=== PATIENT | female | born 1980 | race Two or more races ===

== ENCOUNTER 2018-06-29 17:14 | Emergency (ER) | payer MEDICAID, OTHER ==
[~2018-06-29] VITALS: Ht 170.2 cm; Wt 82.6 kg
[2018-06-29 19:14] LABS: Potassium 3.9 mmol/L (3.5-5.1)
[2018-06-29 19:16] LABS: Basophils # (auto) 0 uL; Basophils % (auto) 0.4 % (0.0-2.0); Eosinophils # (auto) 0.1 uL; Eosinophils % (auto) 0.9 % (0.0-7.0); Hematocrit 40.4 % (36.0-46.0); Hemoglobin 13.4 g/dL (12.2-16.2); Lymphocytes # (auto) 2.1 uL; Lymphocytes % (auto) 23.6 % (10.0-50.0); Mean Corpuscular Hemoglobin 32.1 pg (28.0-32.0); Mean Corpuscular Hgb Conc. 33.1 g/dL (32.0-36.0); Mean Corpuscular Volume 97.2 fL (80.0-100.0); Monocytes # (auto) 0.6 uL; Monocytes % (auto) 6.8 % (0.0-12.0); Neutrophils # (auto) 6.2 uL; Neutrophils % (auto) 68.3 % (37.0-80.0); Nucleated Red Blood Cells % 0.1 %; Platelet Count (auto) 291 10^3/uL (140-450); Red Blood Cells 4.16 10^6/uL (4.0-5.20)
[2018-06-29 19:17] LABS: Albumin 3.8 g/dL (3.4-5.0); Calcium 9.1 mg/dL (8.5-10.1)
[2018-06-29 19:20] LABS: BUN/Creatinine Ratio 12.7
[2018-06-29 19:23] LABS: Bilirubin, Total 0.1 mg/dL (0.2-1.0); Total Protein 8.3 g/dL (6.4-8.2)
[2018-06-29 21:45] VITALS: BP 136/79
== END 2018-06-29 22:24 | disposition home or self-care (01) ==
LOC: ER 17:29
DX: O20.0 Threatened abortion (principal); Z3A.01 Less than 8 weeks gestation of pregnancy
CPT/HCPCS: 36415; 76801; 76817; 80053; 84702; 85025

== ENCOUNTER 2018-12-18 10:46 | Observation (INO) | payer MEDICAID ==
[2018-12-18] MEDS ORDERED: PREN-96 PO (11:17)
[2018-12-18 11:37] LABS: Basophils # (auto) 0 uL; Basophils % (auto) 0.3 % (0.0-2.0); Eosinophils # (auto) 0.1 uL; Eosinophils % (auto) 0.5 % (0.0-7.0); Hematocrit 32.6 % (36.0-46.0); Hemoglobin 11.1 g/dL (12.2-16.2); Lymphocytes # (auto) 1.6 uL; Lymphocytes % (auto) 16.3 % (10.0-50.0); Mean Corpuscular Hemoglobin 33.4 pg (28.0-32.0); Mean Corpuscular Hgb Conc. 34.2 g/dL (32.0-36.0); Mean Corpuscular Volume 97.4 fL (80.0-100.0); Monocytes # (auto) 0.5 uL; Monocytes % (auto) 4.9 % (0.0-12.0); Neutrophils # (auto) 7.9 uL; Nucleated Red Blood Cells % 0.1 %; Platelet Count (auto) 292 10^3/uL (140-450); Red Blood Cells 3.34 10^6/uL (4.0-5.20); Red Cell Distribution Width 13.3 % (11.8-14.3); White Blood Cell 10.1 10^3/uL (4.4-10.8)
[2018-12-18 11:44] LABS: Urine Bacteria NONE SEEN /hpf (None Seen); Urine Blood Negative /uL (Negative); Urine Mucus FEW (None Seen); Urine Specific Gravity 1.014 (1.001-1.035); Urine WBC 59 /hpf (0 - 5)
[2018-12-18 11:54] LABS: Albumin 2.6 g/dL (3.4-5.0); BUN/Creatinine Ratio 8.7; Calcium 8.5 mg/dL (8.5-10.1); Potassium 3.7 mmol/L (3.5-5.1); Uric Acid 4.8 mg/dL (2.6-6.0)
[2018-12-18 11:56] LABS: INR < 0.93 (0.9-1.15); Partial Thromboplastin Time 27.5 sec (23.64-32.05)
[2018-12-18 11:57] LABS: Bilirubin, Total 0.2 mg/dL (0.2-1.0)
== END 2018-12-18 12:20 | disposition home or self-care (01) | DRG 566 ==
LOC: LDRP 10:46
PROVIDERS: ADMIT Specialist; ATTEND Specialist
DX: O26.893 Other specified pregnancy related conditions, third trimester (principal); O09.523 Supervision of elderly multigravida, third trimester; Z3A.31 31 weeks gestation of pregnancy
CPT/HCPCS: 36415; 59025; 80053; 81001; 81002; 84550; 85025; 85610; 85730; G0378

== ENCOUNTER 2018-12-20 12:55 | Observation (INO) | payer MEDICAID ==
[~2018-12-20 12:55] MED LIST: PREN-96 PO
[2018-12-20 14:12] LABS: Protein, Urine 8.8 mg/dL (0.0-11.9)
[2018-12-20 16:40] LABS: 24 Hr. Total Protein, Urine 158.4 mg/24 Hr (<149.1)
== END 2018-12-20 14:00 | disposition home or self-care (01) | DRG 566 ==
LOC: LDRP 12:55
PROVIDERS: ADMIT Obstetrics & Gynecology; ATTEND Obstetrics & Gynecology
DX: O13.3 Gestational [pregnancy-induced] hypertension without significant proteinuria, third trimester (principal); Z3A.31 31 weeks gestation of pregnancy
CPT/HCPCS: 59025; 81002; 84156; G0378

== ENCOUNTER 2018-12-24 10:30 | Observation (INO) | payer MEDICAID | END 2018-12-24 12:55 | disposition home or self-care (01) | DRG 563 | LOC: LDRP 10:30 | PROVIDERS: ADMIT Specialist; ATTEND Specialist | DX: O60.03 Preterm labor without delivery, third trimester (principal); O13.3 Gestational [pregnancy-induced] hypertension without significant proteinuria, third trimester; Z3A.31 31 weeks gestation of pregnancy | CPT/HCPCS: 59025; 76818; 81002; G0378 ==

== ENCOUNTER 2018-12-31 09:10 | Observation (INO) | payer MEDICAID | END 2018-12-31 10:44 | disposition home or self-care (01) | DRG 566 | LOC: LDRP 09:10 | PROVIDERS: ADMIT Obstetrics & Gynecology; ATTEND Obstetrics & Gynecology | DX: O41.93X0 Disorder of amniotic fluid and membranes, unspecified, third trimester, not applicable or unspecified (principal); Z3A.32 32 weeks gestation of pregnancy | CPT/HCPCS: 59025; 76818; 81002; G0378 ==

== ENCOUNTER 2019-01-04 18:58 | Observation (INO) | payer MEDICAID ==
[~2019-01-04] VITALS: Ht 170.2 cm; Wt 90.7 kg
[2019-01-04 20:30] LABS: Basophils # (auto) 0 uL; Basophils % (auto) 0.1 % (0.0-2.0); Eosinophils # (auto) 0.1 uL; Eosinophils % (auto) 1.1 % (0.0-7.0); Hematocrit 32.4 % (36.0-46.0); Hemoglobin 11.1 g/dL (12.2-16.2); Lymphocytes # (auto) 2.3 uL; Lymphocytes % (auto) 23.4 % (10.0-50.0); Mean Corpuscular Hemoglobin 33.5 pg (28.0-32.0); Mean Corpuscular Hgb Conc. 34.3 g/dL (32.0-36.0); Mean Corpuscular Volume 97.5 fL (80.0-100.0); Monocytes # (auto) 0.6 uL; Monocytes % (auto) 6.5 % (0.0-12.0); Neutrophils # (auto) 6.6 uL; Neutrophils % (auto) 68.9 % (37.0-80.0); Platelet Count (auto) 293 10^3/uL (140-450); Red Blood Cells 3.32 10^6/uL (4.0-5.20); Red Cell Distribution Width 13.8 % (11.8-14.3); White Blood Cell 9.6 10^3/uL (4.4-10.8)
[2019-01-04 20:34] LABS: Urine Bacteria FEW /hpf (None Seen); Urine Blood Negative /uL (Negative); Urine Mucus FEW (None Seen); Urine Specific Gravity 1.019 (1.001-1.035); Urine WBC 6 /hpf (0 - 5)
[2019-01-04 20:44] LABS: INR < 0.93 (0.9-1.15); Partial Thromboplastin Time 27.2 sec (23.64-32.05)
[2019-01-04 20:54] LABS: Albumin 2.6 g/dL (3.4-5.0); BUN/Creatinine Ratio 14.3; Bilirubin, Total 0.1 mg/dL (0.2-1.0); Calcium 8.2 mg/dL (8.5-10.1); Potassium 4.1 mmol/L (3.5-5.1); Total Protein 6.8 g/dL (6.4-8.2); Uric Acid 4.7 mg/dL (2.6-6.0)
== END 2019-01-04 21:12 | disposition home or self-care (01) | DRG 566 ==
LOC: LDRP 18:58
PROVIDERS: ADMIT Specialist; ATTEND Specialist
DX: O26.893 Other specified pregnancy related conditions, third trimester (principal); H57.89 Other specified disorders of eye and adnexa; Z3A.33 33 weeks gestation of pregnancy
CPT/HCPCS: 36415; 59025; 80053; 81001; 81002; 84550; 85025; 85610; 85730; G0378

== ENCOUNTER 2019-01-07 10:33 | Observation (INO) | payer MEDICAID | END 2019-01-07 12:05 | disposition home or self-care (01) | DRG 566 | LOC: LDRP 10:33 | PROVIDERS: ADMIT Specialist; ATTEND Specialist | DX: O13.3 Gestational [pregnancy-induced] hypertension without significant proteinuria, third trimester (principal); O09.513 Supervision of elderly primigravida, third trimester; Z3A.36 36 weeks gestation of pregnancy | CPT/HCPCS: 59025; 76818; 81002; G0378 ==

== ENCOUNTER 2019-01-30 10:39 | Observation (INO) | payer MEDICAID ==
[2019-01-30 13:03] LABS: Basophils # (auto) 0 uL; Basophils % (auto) 0.1 % (0.0-2.0); Eosinophils # (auto) 0 uL; Eosinophils % (auto) 0.4 % (0.0-7.0); Hematocrit 35.6 % (36.0-46.0); Hemoglobin 11.9 g/dL (12.2-16.2); Lymphocytes # (auto) 1.7 uL; Lymphocytes % (auto) 18.5 % (10.0-50.0); Mean Corpuscular Hemoglobin 32.5 pg (28.0-32.0); Mean Corpuscular Hgb Conc. 33.6 g/dL (32.0-36.0); Mean Corpuscular Volume 96.9 fL (80.0-100.0); Monocytes # (auto) 0.4 uL; Monocytes % (auto) 4.9 % (0.0-12.0); Neutrophils # (auto) 6.9 uL; Neutrophils % (auto) 76.1 % (37.0-80.0); Platelet Count (auto) 290 10^3/uL (140-450); Red Blood Cells 3.67 10^6/uL (4.0-5.20); Red Cell Distribution Width 14.1 % (11.8-14.3)
[2019-01-30 13:17] LABS: INR 0.96 (0.9-1.15); Partial Thromboplastin Time 27.6 sec (23.64-32.05)
[2019-01-30 13:24] LABS: Albumin 2.6 g/dL (3.4-5.0); Calcium 8.7 mg/dL (8.5-10.1); Potassium 4.4 mmol/L (3.5-5.1)
[2019-01-30 13:27] LABS: BUN/Creatinine Ratio 10.4; Bilirubin, Total 0.2 mg/dL (0.2-1.0); Total Protein 7.3 g/dL (6.4-8.2); Uric Acid 5.5 mg/dL (2.6-6.0)
[2019-01-30 13:31] LABS: Urine Bacteria MOD /hpf (None Seen); Urine Blood Negative /uL (Negative); Urine Mucus FEW (None Seen); Urine Specific Gravity 1.014 (1.001-1.035); Urine WBC 13 /hpf (0 - 5)
== END 2019-01-30 14:39 | disposition home or self-care (01) | DRG 566 ==
LOC: LDRP 10:39
PROVIDERS: ADMIT Obstetrics & Gynecology; ATTEND Obstetrics & Gynecology
DX: O13.3 Gestational [pregnancy-induced] hypertension without significant proteinuria, third trimester (principal); Z3A.37 37 weeks gestation of pregnancy
CPT/HCPCS: 36415; 59025; 76818; 80053; 81001; 81002; 84550; 85025; 85379; 85610; 85730; G0378

== ENCOUNTER 2019-02-01 10:24 | Observation (INO) | payer MEDICAID | END 2019-02-01 11:58 | disposition home or self-care (01) | DRG 566 | LOC: LDRP 10:24 | PROVIDERS: ADMIT Obstetrics & Gynecology; ATTEND Obstetrics & Gynecology | DX: O13.3 Gestational [pregnancy-induced] hypertension without significant proteinuria, third trimester (principal); Z3A.37 37 weeks gestation of pregnancy | CPT/HCPCS: 59025; 81002; 84156; G0378 ==

== ENCOUNTER 2019-02-05 10:00 | Observation (INO) | payer MEDICAID | END 2019-02-05 11:09 | disposition home or self-care (01) | DRG 566 | LOC: LDRP 10:00 | PROVIDERS: ADMIT Obstetrics & Gynecology; ATTEND Obstetrics & Gynecology | DX: O13.3 Gestational [pregnancy-induced] hypertension without significant proteinuria, third trimester (principal); Z3A.38 38 weeks gestation of pregnancy | CPT/HCPCS: 59025; 81002; G0378 ==

== ENCOUNTER 2019-02-07 23:35 | Observation (INO) | payer MEDICAID ==
[~2019-02-07] VITALS: Ht 170.2 cm; Wt 95.7 kg
== END 2019-02-08 00:47 | disposition home or self-care (01) | DRG 566 ==
LOC: LDRP 23:35
PROVIDERS: ADMIT Specialist; ATTEND Specialist
DX: O62.9 Abnormality of forces of labor, unspecified (principal); Z3A.38 38 weeks gestation of pregnancy
CPT/HCPCS: 59025; 81002; G0378

== ENCOUNTER 2019-02-12 10:13 | Observation (INO) | payer MEDICAID ==
[2019-02-12 11:14] LABS: Basophils # (auto) 0 uL; Basophils % (auto) 0.3 % (0.0-2.0); Eosinophils # (auto) 0 uL; Eosinophils % (auto) 0.4 % (0.0-7.0); Hematocrit 35.8 % (36.0-46.0); Hemoglobin 12.2 g/dL (12.2-16.2); Lymphocytes # (auto) 1.6 uL; Lymphocytes % (auto) 16.6 % (10.0-50.0); Mean Corpuscular Hemoglobin 32.9 pg (28.0-32.0); Mean Corpuscular Hgb Conc. 33.9 g/dL (32.0-36.0); Mean Corpuscular Volume 96.9 fL (80.0-100.0); Monocytes # (auto) 0.4 uL; Monocytes % (auto) 4.6 % (0.0-12.0); Neutrophils # (auto) 7.6 uL; Neutrophils % (auto) 78.1 % (37.0-80.0); Platelet Count (auto) 280 10^3/uL (140-450); Red Cell Distribution Width 14.5 % (11.8-14.3); White Blood Cell 9.7 10^3/uL (4.4-10.8)
[2019-02-12 11:25] LABS: Urine Bacteria FEW /hpf (None Seen); Urine Blood 3+ /uL (Negative); Urine Mucus FEW (None Seen); Urine Specific Gravity 1.011 (1.001-1.035); Urine WBC 9 /hpf (0 - 5)
[2019-02-12 11:29] LABS: Albumin 2.6 g/dL (3.4-5.0); Calcium 8.5 mg/dL (8.5-10.1); Potassium 4.4 mmol/L (3.5-5.1)
[2019-02-12 11:33] LABS: Bilirubin, Total 0.2 mg/dL (0.2-1.0); Total Protein 7.3 g/dL (6.4-8.2); Uric Acid 5.5 mg/dL (2.6-6.0)
[2019-02-12 11:36] LABS: INR 0.96 (0.9-1.15); Partial Thromboplastin Time 26.1 sec (23.64-32.05)
[2019-02-13 05:06] LABS: RPR Non Reactive (Non Reactive)
== END 2019-02-12 12:30 | disposition home or self-care (01) | DRG 566 ==
LOC: LDRP 10:13
PROVIDERS: ADMIT Obstetrics & Gynecology; ATTEND Obstetrics & Gynecology
DX: O13.9 Gestational [pregnancy-induced] hypertension without significant proteinuria, unspecified trimester (principal); Z3A.00 Weeks of gestation of pregnancy not specified
CPT/HCPCS: 36415; 59025; 76818; 80053; 81001; 81002; 84112; 84550; 85025; 85610; 85730; 86592; 86850; 86900; 86901; G0378

== ENCOUNTER 2019-02-14 19:26 | Observation (INO) | payer MEDICAID ==
[~2019-02-14] VITALS: Ht 170.2 cm; Wt 95.7 kg
== END 2019-02-14 22:51 | disposition home or self-care (01) | DRG 566 ==
LOC: LDRP 19:26
PROVIDERS: ADMIT Specialist; ATTEND Specialist
DX: O13.3 Gestational [pregnancy-induced] hypertension without significant proteinuria, third trimester (principal); O09.523 Supervision of elderly multigravida, third trimester; Z3A.39 39 weeks gestation of pregnancy
CPT/HCPCS: 59025; 76818; 81002; G0378